=== PATIENT | male | born 1960 ===

== ENCOUNTER 2022-09-01 05:30 | Day surgery (SDC) | payer OTHER | END 2022-09-01 11:40 | disposition home or self-care (01) | LOC: AMB-ENDOS 05:30 | PROVIDERS: ATTEND Surgery | DX: D12.5 Benign neoplasm of sigmoid colon (principal); Z20.822 Contact with and (suspected) exposure to COVID-19; K57.30 Diverticulosis of large intestine without perforation or abscess without bleeding; I10 Essential (primary) hypertension ==